=== PATIENT | female | born 1960 | race Two or more races ===

== ENCOUNTER 2025-04-16 13:34 | Emergency (ER) | payer MEDICARE, OTHER ==
[~2025-04-16] VITALS: Ht 157.5 cm; Wt 49.9 kg
[2025-04-16] MEDS: IV NS 0.9% 1,000 ML BAG IV ONE (15:24)
[2025-04-16 15:30] LABS: PLATELET COUNT (AUTO) 297 K/uL (150-450); RED BLOOD CELL COUNT(AUTO) 4.42 MIL/uL (4.0-5.2); RED CELL DISTRIBUTION WIDTH 14.6 % (11.5-15.0); WHITE BLOOD COUNT (AUTO) 4.5 K/uL (4.3-11.0)
[2025-04-16 15:37] LABS: CALCIUM, SERUM 9.1 mg/dL (8.5-10.1); CREATININE 0.7 mg/dL (0.6-1.3); SODIUM SERUM 134 mmol/L (136-145); UREA NITROGEN, BLOOD 20 mg/dL (7-18)
[2025-04-16 15:44] LABS: ASPARTATE AMINOTRANSFERASE 16 U/L (15-37); TOTAL PROTEIN, SERUM 8.0 g/dL (6.4-8.2)
[2025-04-16] MEDS ORDERED: IOHEXOL-300 100 ML VIAL IV ONE (15:44)
[2025-04-16] MEDS ORDERED: IV NS 0.9% 250 ML IV ONE (15:44)
[2025-04-16 16:49] LABS: BASOPHILS % (MANUAL) 0 % (0.0-2.0); EOSINOPHILS % (MANUAL) 0 % (0-4); LYMPHOCYTES % (MANUAL) 35 % (16-48); MONOCYTES % (MANUAL) 12 % (0-11.0); NEUTROPHILS % (MANUAL) 53 (42-76); PLATELET ESTIMATE ADEQUATE
[2025-04-16] MEDS ORDERED: METR500T PO (18:22)
[2025-04-16] MEDS ORDERED: CIPR-262 PO (18:22)
[2025-04-16] MEDS ORDERED: METRONIDAZOLE 500 MG TABLET ONE (18:38)
[2025-04-16] MEDS ORDERED: CIPROFLOXACIN HCL 500 MG TABLET ONE (18:38)
[2025-04-16] MEDS: CIPROFLOXACIN HCL 250 MG TABLET PO ONE (18:44)
[2025-04-16] MEDS: METRONIDAZOLE 500 MG TABLET PO ONE (18:45)
[2025-04-16 18:46] VITALS: BP 124/68; TEMP 97.9; O2SAT 99
== END 2025-04-16 18:47 | disposition home or self-care (01) ==
LOC: ER 13:53
DX: R19.7 Diarrhea, unspecified (principal); R10.30 Lower abdominal pain, unspecified; I10 Essential (primary) hypertension
CPT/HCPCS: 99285; 74177; 96360; 93005; 85027; 80048; 83690; 80076; 83735; 85007; 36415; 84484; J7030; J7050; Q9967